=== PATIENT | female | born 1985 | race Caucasian/White ===

== ENCOUNTER 2018-04-05 12:54 | Emergency (ER) ==
--- NOTE | 2018-04-05 13:05 | ED.PDOC ---
General ED Provider: Dr. DOMI SINGH Chief Complaint: Bite Stated Complaint: Wasp sting Top Rt Hand. Sudden onset severe pain moving up Rt forearm to elbow along with sensation of swallowing difficuty and dyspnea, and trouble breathing,. Upon arrival patient was hyperventilating, anxious with associated generalized tingling in extremities. Time Seen by Physician: 12:55 Mode of Arrival: Police Information Source: Patient, Family, Police Exam Limitations: No limitations Referred to ED by: PCP Nursing and Triage Documentation Reviewed and Agree: Yes Does patient meet sepsis criteria?: No System Inflammatory Response Syndrome: Not Applicable Sepsis Protocol: For patient's 13 years and over: Temp is 96.8 and below OR 101 and greater Pulse >90 BPM Resp >20/minute Acutely Altered Mental Status Are patient's symptoms suggestive of a new infection, such as: -Pneumonia -Skin, Soft Tissue -Endocarditis -UTI -Bone, Joint Infection -Implantable Device -Acute Abdominal Infection -Wound Infection -Meningitis -Blood Stream Catheter Infection -Unknown Environmental Complaint Exam - Allergic Reaction Complaint/Exam Onset/Duration: 30 minutes Symptoms Are: Worse Timing: Constant Initial Severity: Severe Current Severity: Moderate Location: Discrete (Dorsal lateral aspect Rt Hand) Character: Present: Swelling, Pain Aggravating: Reports: None Alleviating: Reports: None Associated Signs and Symptoms: Reports: Difficulty breathing, Nausea, Vomiting ( anxiety, hyperventilation ) Possible Reaction To: Reports: Insect (Wasp-bee sting back rt hand) Diphenhydramine Prior to Arrival: Yes (75 mg 15 min ago) Respiratory Distress: None Findings: Present: Hoarseness, Macular rash (hyperventilation ) Differential Diagnoses: Urticaria, Other (allergic reaction bee sting) Review of Systems - Review Of Systems Constitutional: Reports: No symptoms Eyes: Reports: No symptoms Ears, Nose, Mouth, Throat: Reports: No symptoms Respiratory: Reports: No symptoms Cardiac: Reports: No symptoms GI: Reports: No symptoms : Reports: No symptoms Musculoskeletal: Reports: No symptoms Skin: Reports: No symptoms Neurological: Reports: No symptoms Endocrine: Reports: No symptoms Hematologic/Lymphatic: Reports: No symptoms All Other Systems: Reviewed and Negative Past Medical History - Past Medical History Previously Healthy: Yes Endocrine: Reports: None, Unknown Cardiovascular: Reports: None, Unknown Respiratory: Reports: None, Unknown Hematological: Reports: None, Unknown Gastrointestinal: Reports: None, Unknown Genitourinary: Reports: None, Unknown Neuro/Psych: Reports: None Musculoskeletal: Reports: None Cancer: Reports: None - Surgical History General Surgical History: Reports: None - Family History Family History: Reports: None Physical Exam - Physical Exam Appearance: Ill-appearing, Well-nourished, Obese Ill-appearing: Moderate Pain Distress: Severe Eyes: KWASI, EOMI, Conjunctiva clear ENT: Ears normal, Nose normal, Oropharynx normal Respiratory: Airway patent, Breath sounds clear, Breath sounds equal, Respirations nonlabored Cardiovascular: RRR, Pulses normal, No rub, No murmur GI/: Soft, Nontender, No masses, Bowel sounds normal, No Organomegaly Musculoskeletal: Normal strength, ROM intact, No edema, No calf tenderness Skin: Warm (tenderness over Rt 4th MCP joint), Dry, Normal color Neurological: Sensation intact, Motor intact, Reflexes intact, Cranial nerves intact, Alert, Oriented Psychiatric: Affect appropriate, Mood appropriate Re-Evaluation - Re-Evaluation Time of Re-Evaluation: 14:00 Status: Improved Vital Signs Stable: Yes Lungs: Clear Skin: Warm and Dry Neuro: Alert and Oriented X3 CV: Other (Resp easy non labored) Critical Care Note - Critical Care Note Total Time (mins): 60 Course - Course Orders, Labs, Meds: Orders Category Date Time Status Cetirizine HCl [Zyrtec] MEDS 04/05/18 13:10 Discontinued 10 mg PO ONCE STA Dexamethasone 4 mg/ml Inj [Decadron 4 mg/ml Sdv] MEDS 04/05/18 13:09 Discontinued 4 mg IM ONCE STA Famotidine [Pepcid] MEDS 04/05/18 13:10 Discontinued 20 mg PO ONCE STA Hydroxyzine HCl [Vistaril Inj] MEDS 04/05/18 13:09 Discontinued 50 mg IM ONCE STA Ondansetron [Zofran Odt] MEDS 04/05/18 13:09 Discontinued 4 mg PO ONCE STA Medications Discontinued Medications Generic Name Dose Route Start Last Admin Trade Name Freq PRN Reason Stop Dose Admin Cetirizine HCl 10 mg 04/05/18 13:10 04/05/18 13:26 Zyrtec PO 04/05/18 13:11 10 mg ONCE STA Administration Dexamethasone Sodium Phosphate 4 mg 04/05/18 13:09 04/05/18 13:29 Decadron 4 Mg/Ml Sdv IM 04/05/18 13:10 4 mg ONCE STA Administration Famotidine 20 mg 04/05/18 13:10 04/05/18 13:26 Pepcid PO 04/05/18 13:11 20 mg ONCE STA Administration Hydroxyzine HCl 50 mg 04/05/18 13:09 04/05/18 13:30 Vistaril Inj IM 04/05/18 13:10 50 mg ONCE STA Administration Ondansetron HCl 4 mg 04/05/18 13:09 04/05/18 13:27 Zofran Odt PO 04/05/18 13:10 4 mg ONCE STA Administration Vital Signs: Temp Pulse Resp BP Pulse Ox 04/05/18 12:55 97.5 F L 88 24 122/76 100 Departure - Departure Time of Disposition: 14:40 Disposition: HOME SELF-CARE Discharge Problem: Wasp sting-induced anaphylaxis Instructions: Insect Bite or Sting (ED) Condition: Good Pt referred to PMD for follow-up: Yes (PCP-1 wk ) IPMP verified?: No Additional Instructions: Remain on meds as directed. Suggest follow up with PCP/and get paint stock clerk consult Keep Benadryl, Pepcid on hand for future events. Rx Epi PEN Ok return work tomorrow was tolerated Allergies/Adverse Reactions: Allergies wasp stings Adverse Reaction (Uncoded 04/05/18 13:08) Home Medications: Ambulatory Orders Diazepam [Valium] 0.5 mg PO PRN PRN 04/05/18 Epinephrine [Epipen 2-Jerry] 0.3 mg IJ PRN PRN #2 pkg 04/05/18 Hydroxyzine HCl [Atarax] 25 mg PO QID PRN #20 tablet 04/05/18 Naproxen [Naprosyn] 500 mg PO PRN PRN 04/05/18 Prednisone 10 mg PO DIRECTED #20 tablet 04/05/18 Transfer Form Completed: Yes Disposition Discussed With: Patient, Family
[2018-04-05 13:09] VITALS: BP 122/76; TEMP 97.5; BMI 31.6
[2018-04-05] MEDS ORDERED: ZOFRAN ODT PO STA (13:09)
[2018-04-05] MEDS ORDERED: DECADRON 4 MG/ML SDV IM STA (13:09)
[2018-04-05] MEDS ORDERED: VISTARIL INJ IM STA (13:09)
[2018-04-05] MEDS ORDERED: ZYRTEC PO STA (13:10)
[2018-04-05] MEDS ORDERED: PEPCID PO STA (13:10)
[2018-04-05] MEDS ORDERED: TORADOL PO STA (15:03)
== END 2018-04-05 15:25 | disposition home or self-care (01) ==
LOC: ED 12:54
DX: T63.461A Toxic effect of venom of wasps, accidental (unintentional), initial encounter (principal); T78.2XXA Anaphylactic shock, unspecified, initial encounter
CPT/HCPCS: 96372; 99283